=== PATIENT | female | born 1950 | race Caucasian/White ===

== ENCOUNTER 2017-03-18 19:36 | Observation (INO) | payer OTHER ==
[~2017-03-18] VITALS: Ht 167.6 cm; Wt 65.8 kg
[2017-03-18 20:43] LABS: HEMATOCRIT 39.2 % (36.0-46.0); MCH 31.8 PG (29.0-34.0); MCHC 34.2 G/DL (30.0-36.0); MCV 93.1 FL (83-99); MEAN PLAT.VOLUME 10.6 uM^3 (9.5-12.4); PLATELET COUNT 373 K/uL (156-360); RBC DIS.WIDTH-CV 11.9 % (11.8-14.6); RBC DIS.WIDTH-SD 40.8 % (39-53); RED BLOOD COUNT 4.21 M/uL (3.80-5.20); WHITE BLOOD COUNT 8.5 K/uL (4.1-10.2)
[2017-03-18 20:52] LABS: CHLORIDE 104 mEq/L (99-109); POTASSIUM 3.3 mEq/L (3.7-5.4); SODIUM 138 mEq/L (136-147)
[2017-03-18 20:53] LABS: GLUCOSE 155 mg/dL (70-99)
[2017-03-18 20:55] LABS: ANION GAP 10 MEQ/L (2-14)
[2017-03-18 20:58] LABS: UREA NITROGEN (BUN) 15 mg/dL (9-23)
[2017-03-18 21:04] LABS: TROP-I INTERPRETATION NEGATIVE; TROPONIN-I 0.01 ng/mL (0.0-0.30)
[2017-03-18 21:13] LABS: GFR ESTIMATE (CALCULATED) > 59 mL/min/
[2017-03-18 21:35] LABS: D-DIMER ELISA < 150.00 ng/mLDDU (<230)
[2017-03-18] MEDS ORDERED: DIGOXIN250 MCG PO (23:13)
[2017-03-18] MEDS ORDERED: CYCLOBENZAPRINE10 MG PO (23:13)
[2017-03-18] MEDS ORDERED: MONTELUKAST SOD10 MG PO (23:14)
[2017-03-18] MEDS ORDERED: FUROSEMIDE20 MG PO (23:15)
[2017-03-18] MEDS ORDERED: LOSARTAN POTASS25 MG PO (23:15)
[2017-03-18] MEDS ORDERED: COREG25 M1 PO (23:16)
[2017-03-18] MEDS ORDERED: DOXYCYCLINE HY100 MG PO (23:17)
[2017-03-18] MEDS ORDERED: CEPHALEXIN500 MG PO (23:18)
[2017-03-18] MEDS ORDERED: GLIMEPIRIDE1 MG PO (23:19)
[2017-03-18] MEDS ORDERED: VENTOLIN HFA18 GM IH (23:20)
[2017-03-18] MEDS ORDERED: FLOVENT 11120 INHALA IH (23:21)
[2017-03-18] MEDS ORDERED: SPIRONOLACTONE25 MG PO (23:21)
[2017-03-18] MEDS ORDERED: GABAPENTIN100 MG PO (23:22)
[2017-03-18] MEDS ORDERED: LO-DOSE ASPIRIN81 M2 PO (23:23)
[2017-03-18] MEDS ORDERED: MOTRIN800 MG PO (23:24)
[2017-03-19 02:32] VITALS: BP 140/64
[2017-03-19 03:13] LABS: TOTAL BILIRUBIN 0.7 mg/dL (0.0-1.0)
[2017-03-19 03:14] LABS: ALKALINE PHOSPHATASE 76 IU/L (3-129)
[2017-03-19 03:16] LABS: DIRECT BILIRUBIN 0.2 mg/dL (0.0-0.3)
[2017-03-19 03:22] LABS: TROP-I INTERPRETATION NEGATIVE; TROPONIN-I 0.04 ng/mL (0.0-0.30)
[2017-03-19 03:23] LABS: DIGOXIN 0.6 ng/mL (0.8-2.0)
[2017-03-19 07:06] VITALS: BP 138/63
[2017-03-19 10:39] LABS: ANION GAP 9 MEQ/L (2-14); CHLORIDE 102 MEQ/L (99-109); GFR ESTIMATE (CALCULATED) > 59 mL/min/; GLUCOSE 214 mg/dL (70-99); POTASSIUM 3.9 MEQ/L (3.7-5.4); SAMPLE HEMOLYSIS CHECK 0; SAMPLE ICTERIC CHECK 0; SAMPLE LIPEMIA CHECK 0; SODIUM 137 MEQ/L (136-147); UREA NITROGEN (BUN) 13 mg/dL (9-23)
[2017-03-19 11:05] VITALS: BP 120/59
[2017-03-19 11:22] LABS: TROP-I INTERPRETATION NEGATIVE; TROPONIN-I 0.02 ng/mL (0.0-0.30)
[2017-03-19 11:52] LABS: POINT-OF-CARE METER ID UU13113831
== END 2017-03-19 15:03 | disposition home or self-care (01) ==
LOC: EME 19:36 → EDOF 03-19 01:13 → 5WEST 03-19 01:13 → ENRESERV 03-19 01:16 → 5WEST 03-19 02:03
PROVIDERS: Emergency Medicine; Hospitalist
DX: R07.9 Chest pain, unspecified (principal); R06.02 Shortness of breath; R94.31 Abnormal electrocardiogram [ECG] [EKG]; I42.9 Cardiomyopathy, unspecified; E87.6 Hypokalemia; E11.9 Type 2 diabetes mellitus without complications; I10 Essential (primary) hypertension; R09.89 Other specified symptoms and signs involving the circulatory and respiratory systems; J32.9 Chronic sinusitis, unspecified; J45.909 Unspecified asthma, uncomplicated; Z90.49 Acquired absence of other specified parts of digestive tract; Z87.891 Personal history of nicotine dependence; Z79.84 Long term (current) use of oral hypoglycemic drugs; Z82.49 Family history of ischemic heart disease and other diseases of the circulatory system; Z80.1 Family history of malignant neoplasm of trachea, bronchus and lung; Z88.0 Allergy status to penicillin; Z88.8 Allergy status to other drugs, medicaments and biological substances
CPT/HCPCS: 71020; 80048; 80076; 80162; 82948; 83880; 84484; 85027; 85379; 93005; 94640; 99202; 99281; 99285; G0378; J7030